=== PATIENT | female | born 1975 | race Caucasian/White ===

== ENCOUNTER 2017-06-08 17:00 | Emergency (ER) | payer OTHER ==
[~2017-06-08] VITALS: Ht 165.1 cm; Wt 49.0 kg
[2017-06-08] MEDS ORDERED: BACITRACIN ZINC OINT UDPKT TOP ONE (23:30)
[2017-06-08] MEDS ORDERED: ACETAMINOPHEN 500MG TABLET PO ONE (23:30)
[2017-06-09 00:40] VITALS: BP 106/67
== END 2017-06-09 00:40 | disposition home or self-care (01) ==
LOC: ER 18:22
DX: S40.812A Abrasion of left upper arm, initial encounter (principal); Y09 Assault by unspecified means; R10.9 Unspecified abdominal pain; Y93.89 Activity, other specified; Y92.89 Other specified places as the place of occurrence of the external cause; Y99.8 Other external cause status
CPT/HCPCS: 81025; 99283; Z7610